=== PATIENT | female | born 1990 | race Caucasian/White ===

== ENCOUNTER 2023-04-05 15:48 | Emergency (ER) | payer SELFPAY ==
[2023-04-05 15:51] VITALS: BP 138/89; PULSE 97; RESP 18; TEMP 36.8; O2SAT 100; BMI 26.9
[2023-04-05] MEDS: BENZOCAINE 30 ML, lidocaine HCL 15 ML MM (16:20)
--- NOTE | 2023-04-05 16:21 | ED.DENTAL1 ---
HPI - Dental/Oral General Chief complaint: Dental/Oral Stated complaint: TOOTHACHE Time Seen by Provider: 04/05/23 15:56 Source: patient Mode of arrival: walk-in History of Present Illness HPI Narrative: Patient is a 33-year-old female presents to the emergency department for the evaluation of pain and swelling in the left maxilla. She states she has had issues with 2 teeth in the maxilla on opposite sides, tooth #14 and tooth #3 for the last month. She has not seen a dentist. She is not concerned for . She states in the last several days tooth #14 has become more painful and she feels the area is swollen around the gumline. No fevers, difficulty swallowing or drainage from the tooth. Related Data Previous Rx's Medication Instructions Recorded clindamycin HCl 150 mg capsule 300 mg PO Q6H 10 days #80 caps 04/05/23 ibuprofen 800 mg tablet 800 mg PO Q8H PRN pain #20 tabs 04/05/23 Allergies Allergy/AdvReac Type Severity Reaction Status Date / Time penicillin G AdvReac Intermediate Verified 04/05/23 15:51 Review of Systems ROS Constitutional Denies: fever or chills Ears, nose, mouth, and throat Denies: throat pain or nasal congestion Cardiovascular Denies: chest pain Respiratory Denies: shortness of breath or cough Gastrointestinal Denies: nausea or vomiting Musculoskeletal Denies: back pain Integumentary/Breast Denies: rash Neurological Denies: headache Hematologic/Lymphatic Denies: easy bruising PFSH PFSH Social History Smoking status: Current every day smoker Exam Narrative Exam Narrative: Gen.: Awake, alert, in no distress Head: Normocephalic, atraumatic ENT: Moist mucous membranes, dental caries of tooth #14 and tooth #3. Tooth #14 with mildly edematous gumline, no visible dental abscess. No trismus or drooling. Airway widely open and patent. No redness or swelling under the tongue. Uvula midline, clear speech. No appreciable maxillary or mandibular swelling Respiratory: No respiratory distress Extremities: Moves extremities equally Psych: Normal mood and affect Neuro: No focal neuro deficit Skin: Warm, dry, intact Constitutional Vital Signs, click to edit/add: Last Vital Signs Temp 98.2 F 04/05/23 15:51 Pulse 97 H 11/27/23 15:51 Resp 18 04/05/23 15:51 BP 138/89 04/05/23 15:51 Pulse Ox 100 04/05/23 15:51 O2 Del Method Room Air 04/05/23 15:51 Course Vital Signs Vital signs: Vital Signs Temperature 98.2 F 04/05/23 15:51 Pulse Rate 97 H 04/05/23 15:51 Respiratory Rate 18 04/05/23 15:51 Blood Pressure 138/89 04/05/23 15:51 Pulse Oximetry 100 04/05/23 15:51 Oxygen Delivery Method Room Air 04/05/23 15:51 Temperature 98.2 F 04/05/23 15:51 Pulse Rate 97 H 04/05/23 15:51 Respiratory Rate 18 04/05/23 15:51 Blood Pressure 138/89 04/05/23 15:51 Pulse Oximetry 100 04/05/23 15:51 Oxygen Delivery Method Room Air 04/05/23 15:51 MDM - Dental/Oral MDM Narrative Medical decision making narrative: Patient treated for dental pain with topical analgesia. She request ibuprofen 800 mg tablets for pain control. Clindamycin given for antibiotic coverage. She was given a referral to dentistry. Return to the ER if symptoms change or worsen Medical Records Attestation: I reviewed the patient's medical records. Discharge Plan Discharge Chief Complaint: Dental/Oral Clinical Impression: Dental caries, Toothache Patient Disposition: Home, Self-Care Time of Disposition Decision: 16:22 Condition: Good Prescriptions / Home Meds: New clindamycin HCl 150 mg capsule 300 mg PO Q6H 10 Days Qty: 80 0RF ibuprofen 800 mg tablet 800 mg PO Q8H PRN (Reason: pain) Qty: 20 0RF Rx Instructions: take with food Instructions: Toothache (ED) Additional Instructions: Follow up with your dentist Stand Alone Forms: Portal Instructions Referrals: RETA LAIRD [Primary Care Provider] - 1 week
== END 2023-04-05 16:27 | disposition home or self-care (01) ==
PROVIDERS: Emergency Provider Emergency Medicine Emergency Medical Services; PCP Nurse Practitioner
DX: K02.9 Dental caries, unspecified (principal); K08.89 Other specified disorders of teeth and supporting structures; F17.210 Nicotine dependence, cigarettes, uncomplicated
CPT/HCPCS: 99283